=== PATIENT | female | born 2000 | race African-American/Black ===

== ENCOUNTER 2020-03-27 19:44 | Emergency (ER) | payer SELFPAY ==
[~2020-03-27] VITALS: Ht 170.2 cm; Wt 74.9 kg
[2020-03-27 19:49] VITALS: BP 142/71
[2020-03-27 22:51] LABS: MICROSCOPIC NOT IND
[2020-03-27 22:52] LABS: CULTURE INDICATED? NO
== END 2020-03-27 23:13 | disposition home or self-care (01) ==
LOC: ED 21:30
DX: N93.8 Other specified abnormal uterine and vaginal bleeding (principal); R42 Dizziness and giddiness; R10.2 Pelvic and perineal pain
CPT/HCPCS: 36415; 81003; 84702; 99283

== ENCOUNTER 2020-04-23 12:12 | Emergency (ER) | payer SELFPAY ==
[~2020-04-23] VITALS: Ht 170.2 cm; Wt 71.4 kg
[2020-04-23] MEDS ORDERED: HYDROcodone/APAP 5/325 TABLET ONE (12:51)
[2020-04-23] MEDS ORDERED: HYDROcodone/APAP 5/325 TABLET PO PRN (13:00)
--- NOTE | 2020-04-23 13:05 | NUR ---
THIS IS A 19 YO FEMALE C/O LEFT WRIST PAIN AND DEFORMITY AFER PUNCHING A WALL. PT AO X 4. SKIN WARM AND DRY AND INTACT. PILLOW PROVIDED AND ARM POSITIONED FOR COMFORT. PT HAS ICE PACK. SIGNIFICANT OTHER AT BEDSIDE. CALL LIGHT WITHIN REACH. WILL CONT TO MONITOR PT.
--- NOTE | 2020-04-23 14:17 | NUR ---
[facility]. NAD NOTED. SKIN PWD. RESP EVEN AND UNLABORED. PT REPORTS MILD PAIN RELIEF WITH NORCO. PT AWARE WE ARE WAITING FOR A RECHECK BY ERMD. PT DENIES OTHER NEEDS. SIGNIFICANT OTHER AT BEDSIDE WITH PT.
[2020-04-23 14:55] VITALS: BP 116/70
== END 2020-04-23 14:57 | disposition home or self-care (01) ==
LOC: ED 13:22
DX: S60.211A Contusion of right wrist, initial encounter (principal); F17.200 Nicotine dependence, unspecified, uncomplicated; W22.8XXA Striking against or struck by other objects, initial encounter; Y93.89 Activity, other specified; Y92.098 Other place in other non-institutional residence as the place of occurrence of the external cause; Y99.8 Other external cause status
CPT/HCPCS: 99283

== ENCOUNTER 2020-05-27 04:44 | Emergency (ER) | payer SELFPAY ==
[~2020-05-27] VITALS: Ht 170.2 cm; Wt 74.2 kg
--- NOTE | 2020-05-27 04:58 | NUR ---
PT AMBULATORY TO ROOM, STEADY GAIT.
--- NOTE | 2020-05-27 05:10 | NUR ---
PT AMBUALTORY TO BATHROOM, STEADY GAIT. FIANCE AT BEDSIDE.
[2020-05-27] MEDS ORDERED: SODIUM CHLORIDE FLUSH 10ML SYR IVF ONE (05:30)
[2020-05-27] MEDS ORDERED: KETOROLAC 30 MG/1 ML IVPush ONE (05:30)
[2020-05-27] MEDS ORDERED: SODIUM CHLORIDE 0.9% 1,000ML IVBOLUS ONE (05:30)
[2020-05-27] MEDS ORDERED: KETOROLAC 30 MG/1 ML IM ONE (05:30)
[2020-05-27] MEDS ORDERED: ACETAMINOPHEN 500 MG TABLET PO ONE (05:30)
[2020-05-27] MEDS ORDERED: KETOROLAC 30 MG/1 ML ONE (05:33)
[2020-05-27] MEDS ORDERED: ACETAMINOPHEN 500 MG TABLET ONE (05:37)
--- NOTE | 2020-05-27 05:45 | NUR ---
THIS PT WAS BIB HER FIANCE FROM HOME. FIANCE STATED THAT THEY ARE TRYING TO GET . PT STATES SHE NOTED A DARK COLOR IN HER URINE 4 DAYS AGO AND WAS TAKING "OVER THE COUNTER MEDS". IN THE MIDDLE OF THE NIGHT HER PAIN WOKE HER UP, THE PT REMAINS CRYING IN THE GURNEY CURRENTLY. PT STATES SHE TOOK A TEST YESTERDAY THAT WAS NEGATIVE.
[2020-05-27 05:51] LABS: MICROSCOPIC AUTO
[2020-05-27 05:57] LABS: BASOPHILS # (AUTO) 0.03 x10^3/uL (0-0.3); BASOPHILS % (AUTO) 0 % (0-1); EOSINOPHILS # (AUTO) 0.09 x10^3/uL (0-0.8); EOSINOPHILS % (AUTO) 1 % (1-7); LYMPHOCYTES # (AUTO) 1.51 x10^3/uL (1-6.1); LYMPHOCYTES % (AUTO) 11 % (22-44); MD NO; MEAN CORPUSCULAR HEMOGLOBIN 26.2 pg (27.0-34.8); MEAN CORPUSCULAR HGB CONC 32.3 g/dL (32.4-35.8); MEAN PLATELET VOLUME 7.4 fL (7.4-10.4); MONOCYTES # (AUTO) 1.42 x10^3/uL (0-1.4); MONOCYTES % (AUTO) 10 % (2-9); NEUTROPHILS # (AUTO) 10.71 x10^3/uL (1.8-8.0); NEUTROPHILS % (AUTO) 78 % (42-75); PLATELET COUNT 273 x10^3/uL (130-400); RED BLOOD COUNT 4.95 x10^6/uL (3.82-5.3); RED CELL DISTRIBUTION WIDTH 18.8 % (9.6-15.2)
[2020-05-27 06:04] LABS: ALANINE AMINOTRANSFERASE 20 U/L (12-78); ALBUMIN 3.3 g/dL (3.4-5.0); ANION GAP 6 mmol/L (5-15); CALCIUM 8.8 mg/dL (8.5-10.1); CHLORIDE 109 mmol/L (98-107); CREATININE 0.86 mg/dL (0.55-1.02)
[2020-05-27 06:08] LABS: ALKALINE PHOSPHATASE 62 U/L (45-117); BILIRUBIN,TOTAL 0.7 mg/dL (0.2-1.0); TOTAL PROTEIN 7.7 g/dL (6.4-8.2)
[2020-05-27 06:12] VITALS: BP 107/66
--- NOTE | 2020-05-27 06:12 | NUR ---
THIS RN TO US TO WITNESS PROCEDURE. PT LAUGHING IN CT.
[2020-05-27] MEDS ORDERED: CEFTRIAXONE PMX 1GM/50ML 50 ML IV ONE (06:30)
[2020-05-27] MEDS ORDERED: CEFTRIAXONE PMX 1GM/50ML 50 ML ONE (06:48)
--- NOTE | 2020-05-27 06:53 | NUR ---
TASK RN: ROCEPHIN STARTED AND INFUSING W/O DIFFICULTY. CALL LIGHT W/I REACH. NAD NOTED.
--- NOTE | 2020-05-27 06:53 | NUR ---
REPORT GIVEN TO GASPER HARTMANN. PT LAYING IN BED, NO SIGNS OF DISTRESS, GASPER MORENO AT BEDSIDE TO HANG ABX.
--- NOTE | 2020-05-27 06:54 | NUR ---
BLOOD CULTURES DRAWN X 2
== END 2020-05-27 07:17 | disposition home or self-care (01) ==
LOC: ED 06:23
DX: N30.01 Acute cystitis with hematuria (principal)
CPT/HCPCS: 36415; 76830; 80053; 81001; 83605; 84145; 84703; 85025; 87040; 87086; 96374; 96375; 99284; J0696; J1885; J7030

== ENCOUNTER 2020-10-14 08:25 | Emergency (ER) | payer SELFPAY ==
[~2020-10-14] VITALS: Ht 172.7 cm; Wt 73.6 kg
--- NOTE | 2020-10-14 08:51 | NUR ---
yellow slip to pharm
[2020-10-14] MEDS ORDERED: CEFTRIAXONE 250 MG ONE (08:53)
[2020-10-14] MEDS ORDERED: AZITHROMYCIN 500 MG TABLET ONE (08:53)
[2020-10-14] MEDS ORDERED: AZITHROMYCIN 500 MG TABLET PO ONE (09:00)
[2020-10-14] MEDS ORDERED: CEFTRIAXONE 250 MG IM ONE (09:00)
[2020-10-14] MEDS ORDERED: BICILLIN-LA 2,400,000 UNITS/4 ML IM ONE (09:00)
--- NOTE | 2020-10-14 09:00 | NUR ---
PT AMBULATES WELL TO BATHROOM FOR UA, FORGOT TO COLLECT URINE. CUP BACK AT BEDSIDE. PT SITTING UP IN BED, TEARFUL. NAD NOTED AT THIS TIME. AWAITING BICILLIN FROM PHARMACY.
[2020-10-14 09:37] LABS: CLUE CELLS PRESENT (NONE SEEN); WET PREP WBCS FEW (FEW)
[2020-10-14] MEDS ORDERED: metroNIDAZOLE 500 MG TABLET ONE (09:54)
[2020-10-14] MEDS ORDERED: metroNIDAZOLE 500 MG TABLET PO ONE (10:00)
--- NOTE | 2020-10-14 10:03 | NUR ---
PT TOLERATED MEDICATION WELL. EDUCATION ON PROBIOTIC USE. MONITORING 20 MORE MINUTES BEFORE DC.
[2020-10-14 10:27] VITALS: BP 131/92
== END 2020-10-14 10:29 | disposition home or self-care (01) ==
LOC: ED 09:14
DX: A53.9 Syphilis, unspecified (principal); N76.0 Acute vaginitis
CPT/HCPCS: 36415; 86592; 87210; 87491; 87591; 87808; 96372; 99284; J0561; J0696